=== PATIENT | female | born 1965 ===

== ENCOUNTER 2016-10-09 08:24 | Inpatient (IN) | payer MEDICAID, OTHER ==
[2016-10-09 08:27] VITALS: BMI 20.1
[2016-10-09 08:30] VITALS: O2SAT 100
[2016-10-09 10:03] LABS: EOS # 0.1 K/uL (0.0-0.7); EOS % 4.7 % (0.0-4.0); HEMATOCRIT 36.8 % (34.0-47.0); LYMPH # 1.2 K/uL (1.0-4.3); LYMPH % 39.2 % (20.0-40.0); MEAN CORPUSCULAR HEMOGLOBIN 28.7 pg (27.0-31.0); MEAN CORPUSCULAR HGB CONC 32.2 g/dL (33.0-37.0); MEAN PLATELET VOLUME 9.8 fL (7.2-11.7); MONO # 0.3 K/uL (0.0-0.8); MONO % 10.9 % (0.0-10.0); RED CELL DISTRIBUTION WIDTH 13.5 % (11.5-14.5); WHITE BLOOD COUNT 2.9 K/uL (4.8-10.8)
[2016-10-09 10:06] LABS: CHLORIDE 98 mmol/L (98-107)
[2016-10-09 10:07] LABS: POTASSIUM 3.8 mmol/L (3.6-5.2); SODIUM 144 mmol/L (132-148)
[2016-10-09 10:09] LABS: ALKALINE PHOSPHATASE 75 U/L (38-126); AST/SGOT 27 U/L (14-36); BILIRUBIN,TOTAL 0.3 mg/dL (0.2-1.3); BLOOD UREA NITROGEN 12 mg/dL (7-17); CARBON DIOXIDE 29 mmol/L (22-30); GFR AFRICAN-AMERICAN > 60; TOTAL PROTEIN 7.9 g/dL (6.3-8.3)
[2016-10-09 10:10] LABS: ALCOHOL SERUM < 10 mg/dl (0-10); ALT/SGPT 17 U/L (9-52); CALCIUM 8.9 mg/dl (8.6-10.4); GLUCOSE,RANDOM 104 mg/dL (65-105)
[2016-10-09 10:12] LABS: RBC URINE 1 /hpf (0-3); URINE BILIRUBIN NEGATIVE (NEGATIVE); URINE BLOOD NEGATIVE (NEGATIVE); URINE CALCIUM OXALATE CRYSTALS FEW /hpf (<OCC); URINE COLOR Yellow (YELLOW); URINE GLUCOSE (UA) NORMAL (Normal); URINE KETONE NEGATIVE (NEGATIVE); URINE LEUKOCYTE ESTERASE TRACE Leu/uL (Negative); URINE PROTEIN NEGATIVE (NEGATIVE); URINE UROBILINOGEN NORMAL mg/dL (0.2-1.0); WBC URINE 5 /hpf (0-5)
--- NOTE | 2016-10-09 10:54 | C.PDOC ---
History Of Present Illness 51 y/o female presents to the ED with complains of SI with a plan to overdose. Pt has history of psych admission, last was 1 year ago. Pt not currently on any medications. Pt denies homicidal ideation or any other complaints. Time Seen by Provider: 10/09/16 08:46 Chief Complaint (Nursing): Psychiatric Evaluation History Per: Patient History/Exam Limitations: no limitations Onset/Duration Of Symptoms: Days Current Symptoms Are (Timing): Still Present Suicide/Self Injury Attempted (Context): None Associated Symptoms: Suicidal Thoughts, Suicidal Plan Involuntary Hold By: None Recent travel outside of the [place]: No Past Medical History Reviewed: Historical Data, Nursing Documentation, Vital Signs Vital Signs: Last Vital Signs Temp 97.5 F L 10/09/16 08:28 Pulse 78 10/09/16 08:28 Resp 20 10/09/16 08:28 BP 129/77 10/09/16 08:28 Pulse Ox 100 10/09/16 10:54 - Medical History PMH: Anxiety, Depression, Hepatitis Family History: States: Unknown Family Hx - Social History Hx Alcohol Use: Yes Hx Substance Use: Yes (heroin (IV)) Review Of Systems Except As Marked, All Systems Reviewed And Found Negative. Psych: Positive for: Suicidal ideation Physical Exam - Physical Exam Appears: Non-toxic, No Acute Distress Skin: Warm, Dry, No Rash Head: Atraumatic, Normacephalic Neck: Normal ROM, Supple Chest: Symmetrical Cardiovascular: Rhythm Regular, No Murmur Respiratory: Normal Breath Sounds, No Rales, No Rhonchi, No Wheezing Gastrointestinal/Abdominal: Soft Extremity: Bilateral: Atraumatic Neurological/Psych: Oriented x3, Normal Speech ED Course And Treatment - Laboratory Results Result Diagrams: 10/09/16 09:53 10/09/16 09:53 O2 Sat by Pulse Oximetry: 100 (on room air) Pulse Ox Interpretation: Normal Progress Note: Plan: CRISIS evaluation. CRISIS given score of 14, placed on 1: 1 observation. Patient is medically cleared for psychiatric admission. She was accepted by . Disposition - Disposition Disposition: HOSPITALIZED Disposition Time: 11:23 Condition: STABLE - Clinical Impression Clinical Impression: Schizoaffective disorder, Suicidal ideations - PA / HUMAN RESOURCES TEMP / Resident Statement MD/DO has reviewed & agrees with the documentation as recorded. - Scribe Statement The provider has reviewed the documentation as recorded by the Scribe Neptali Abel All medical record entries made by the Jc were at my direction and personally dictated by me. I have reviewed the chart and agree that the record accurately reflects my personal performance of the history, physical exam, medical decision making, and the department course for this patient. I have also personally directed, reviewed, and agree with the discharge instructions and disposition. Decision To Admit - Pt Status Changed To: Hospital Disposition Of: Inpatient - Admit Certification Admit to Inpatient:: After my assessment, the patient will require hospitalization for at least two midnights. This is because of the severity of symptoms shown, intensity of services needed, and/or the medical risk in this patient being treated as an outpatient. - InPatient: Physician Admission Certification: I certify that this patient requires 2 or more midnights of care for the following reason:: will need more than 2 days of admission - . Bed Request Type: Psychiatry Patient Diagnosis: Schizoaffective disorder, Suicidal ideations
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
--- NOTE | 2016-10-10 10:30 | PCM.PYCHPN ---
Psychiatric Progress Note - Psychiatric Progress Note Patient seen today, length of contact: 17 min Patient Chief Complaint: suicidal ideation Problems Identified/Issues Discussed: Pt. remains disorganized and internally preoccupied. Pt. reports withdrawal symptoms, including headaches, cramps, joint pains and nausea. She is responding well to methadone tx. Pt. is taking medications and denies adverse effects. Pt. admits to still hearing voices, but does stipulate that they are improved. Pt. keeps to herself and doesnt engage in socializing. supportive therapy was given Medication Change: Yes (Methadone taper) Medical Record Reviewed: Yes Mental Status Examination - Cognitive Function Orientation: Person, Place, Situation, Time Attention: Poor Concentration: Poor Association: Loose Fund of Knowledge: Poor - Mood Mood: Depressed, Anxious - Affect Affect: Constricted, Depressed - Formal Thought Process Formal Thought Process: Hallucinations, Delusions, Paranoia, Loosening of associations, Flight of ideas, Thought Broadcasting - Suicidal Ideation Suicidal Ideation: No - Homicidal Ideation Homicidal Ideation: No Goal/Treatment Plan - Goal/Treatment Plan Need for Continued Stay: Discharge may exacerbated symptoms, Severe functional impairment Progress Toward Problem(s) and Goals/Treatment Plan: Schizoaffective Disorder depressed type CBT Psychoeducation Supportive therapy, group therapy, individual therapy Risperdal 1 mg by mouth twice a day Paxil 10 mg by mouth daily Neurontin 100 mg by mouth 3 times a day Trazodone 50 mg by mouth daily at bedtime Opioid abuse disorder severe CBT Psychoeducation Supportive therapy, individual therapy Use [place] for abstinence Opiate withdrawal CBT Psychoeducation Supportive therapy, individual therapy Methadone taper - Smoking Cessation Smoking Cessation Initiated: No
--- NOTE | 2016-10-11 15:58 | PCM.PYCHPN ---
Psychiatric Progress Note - Psychiatric Progress Note Patient seen today, length of contact: 16 min Patient Chief Complaint: i am feeling very depressed and anxious Problems Identified/Issues Discussed: Patient seen and evaluated, chart reviewed and discussed with the nurse. As per the staff, patient remained disorganized and internally preoccupied. Patient reports irritability, anxiety and agitation. She reports depressed mood but remained isolated and withdrawn. She still reports hearing voices. Patient still appears paranoid and delusional. She reports improvement in her withdrawal symptoms but still reports anxiety, headaches and back pains. Supportive therapy and psychoeducation were given. Medication Change: Yes (Methadone taper, increase Risperdal, increase Paxil) Medical Record Reviewed: Yes Mental Status Examination - Cognitive Function Orientation: Person, Place, Situation, Time Attention: Poor Concentration: Poor Association: Loose Fund of Knowledge: Poor - Mood Mood: Depressed, Anxious - Affect Affect: Constricted, Depressed - Formal Thought Process Formal Thought Process: Hallucinations, Delusions, Paranoia, Loosening of associations, Flight of ideas, Thought Broadcasting - Suicidal Ideation Suicidal Ideation: No - Homicidal Ideation Homicidal Ideation: No Goal/Treatment Plan - Goal/Treatment Plan Need for Continued Stay: Discharge may exacerbated symptoms, Severe functional impairment Progress Toward Problem(s) and Goals/Treatment Plan: Schizoaffective Disorder depressed type CBT Psychoeducation Supportive therapy, group therapy, individual therapy Risperdal 2 mg by mouth HS Paxil 20 mg by mouth daily Neurontin 100 mg by mouth 3 times a day Trazodone 50 mg by mouth daily at bedtime Opioid abuse disorder severe CBT Psychoeducation Supportive therapy, individual therapy Use [place] for abstinence Opiate withdrawal CBT Psychoeducation Supportive therapy, individual therapy Methadone taper - Smoking Cessation Smoking Cessation Initiated: No
--- NOTE | 2016-10-12 09:43 | PCM.PYCHPN ---
Psychiatric Progress Note - Psychiatric Progress Note Patient seen today, length of contact: 18 min Patient Chief Complaint: i am feeling very anxious Problems Identified/Issues Discussed: Patient seen and evaluated, chart reviewed and discussed with the nurse. today patient appeared more organized than before but remained internally preoccupied. She reports of racing of thoughts and flight of ideas. she also reports reports irritability, and agitation. however she reports improvement in her hallucinations and withdrawal symptoms. she is taking medication and denied side effects Supportive therapy and psychoeducation were given. Medication Change: Yes (Methadone taper, increase Risperdal, increase Paxil) Medical Record Reviewed: Yes Mental Status Examination - Cognitive Function Orientation: Person, Place, Situation, Time Attention: WNL Concentration: Poor Association: Loose Fund of Knowledge: Poor - Mood Mood: Depressed, Anxious - Affect Affect: Constricted, Depressed - Formal Thought Process Formal Thought Process: Hallucinations, Delusions, Paranoia, Loosening of associations, Flight of ideas, Thought Broadcasting - Suicidal Ideation Suicidal Ideation: No - Homicidal Ideation Homicidal Ideation: No Goal/Treatment Plan - Goal/Treatment Plan Need for Continued Stay: Discharge may exacerbated symptoms, Severe functional impairment Progress Toward Problem(s) and Goals/Treatment Plan: Schizoaffective Disorder depressed type CBT Psychoeducation Supportive therapy, group therapy, individual therapy Risperdal 3 mg by mouth HS Paxil 20 mg by mouth daily Neurontin 100 mg by mouth 3 times a day Trazodone 50 mg by mouth daily at bedtime Opioid abuse disorder severe CBT Psychoeducation Supportive therapy, individual therapy Use [place] for abstinence Opiate withdrawal CBT Psychoeducation Supportive therapy, individual therapy Methadone taper - Smoking Cessation Smoking Cessation Initiated: No
[2016-10-13] MEDS ORDERED: Divalproex 250 mg DR Tab PO SCH (10:00)
--- NOTE | 2016-10-13 11:31 | PCM.PYCHPN ---
Psychiatric Progress Note - Psychiatric Progress Note Patient seen today, length of contact: 16 min Patient Chief Complaint: i am still feeling anxious Problems Identified/Issues Discussed: Patient seen and evaluated, chart reviewed and discussed with the nurse. as per the staff patient has started coming out of her room and appears more organized and reports improvement in the voices. She still appears paranoid and delusional and reports irritability and agitation. she is taking medication and denies side effects. Supportive therapy and psychoeducation were given. Medication Change: Yes (start Depakote) Medical Record Reviewed: Yes Mental Status Examination - Cognitive Function Orientation: Person, Place, Situation, Time Attention: WNL Concentration: Poor Association: Loose Fund of Knowledge: Poor - Mood Mood: Depressed, Anxious - Affect Affect: Constricted, Depressed - Formal Thought Process Formal Thought Process: Paranoia, Loosening of associations, Flight of ideas - Suicidal Ideation Suicidal Ideation: No - Homicidal Ideation Homicidal Ideation: No Goal/Treatment Plan - Goal/Treatment Plan Need for Continued Stay: Discharge may exacerbated symptoms, Severe functional impairment Progress Toward Problem(s) and Goals/Treatment Plan: Schizoaffective Disorder depressed type CBT Psychoeducation Supportive therapy, group therapy, individual therapy Risperdal 3 mg by mouth HS Paxil 20 mg by mouth daily Neurontin 100 mg by mouth 3 times a day Trazodone 50 mg by mouth daily at bedtime Depakote 250 mg by mouth twice a day Opioid abuse disorder severe CBT Psychoeducation Supportive therapy, individual therapy Use [place] for abstinence Opiate withdrawal CBT Psychoeducation Supportive therapy, individual therapy Methadone taper - Smoking Cessation Smoking Cessation Initiated: No
[2016-10-13] MEDS: Divalproex 500 mg DR Tab PO SCH (18:13)
[2016-10-14] MEDS: Divalproex 500 mg DR Tab PO SCH ×2 (10:22→17:47)
--- NOTE | 2016-10-14 16:15 | PCM.PYCHPN ---
Psychiatric Progress Note - Psychiatric Progress Note Patient seen today, length of contact: 18 min Patient Chief Complaint: I'm feeling increase dizzy with Neurontin Problems Identified/Issues Discussed: Patient seen and evaluated, chart reviewed and discussed with the nurse. Pt reports sleepiness and dizziness from Neurontin. However she reports little bit improvement in her racing of thoughts and agitation. She also reports improvement in her paranoia and voices. As per staff more calm and cooperative and less agitated. She is taking medication and denies side effects. Medication Change: Yes (increase Depakote) Medical Record Reviewed: Yes Mental Status Examination - Cognitive Function Orientation: Person, Place, Situation, Time Attention: WNL Concentration: Poor Association: Loose Fund of Knowledge: Poor - Mood Mood: Depressed, Anxious - Affect Affect: Constricted, Depressed - Formal Thought Process Formal Thought Process: Delusions, Loosening of associations, Flight of ideas - Suicidal Ideation Suicidal Ideation: No - Homicidal Ideation Homicidal Ideation: No Goal/Treatment Plan - Goal/Treatment Plan Need for Continued Stay: Discharge may exacerbated symptoms, Severe functional impairment Progress Toward Problem(s) and Goals/Treatment Plan: Schizoaffective Disorder depressed type CBT Psychoeducation Supportive therapy, group therapy, individual therapy Risperdal 3 mg by mouth HS Paxil 20 mg by mouth daily Neurontin 100 mg by mouth 3 times a day Trazodone 50 mg by mouth daily at bedtime Depakote 250 mg by mouth daily Depakote 500 mg daily at bedtime Opioid abuse disorder severe CBT Psychoeducation Supportive therapy, individual therapy Use [place] for abstinence Opiate withdrawal CBT Psychoeducation Supportive therapy, individual therapy Methadone taper - Smoking Cessation Smoking Cessation Initiated: No
[2016-10-15] MEDS: Divalproex 500 mg DR Tab PO SCH ×2 (11:31→17:26)
--- NOTE | 2016-10-15 15:23 | PCM.PYCHPN ---
Psychiatric Progress Note - Psychiatric Progress Note Patient seen today, length of contact: 16 min Patient Chief Complaint: i am feeling better Problems Identified/Issues Discussed: Patient seen and evaluated, chart reviewed and discussed. She reports improvement in her racing of thoughts and anxiety and reports that Depakote is working well. Patient remained isolated and withdrawn. she reports improvement in her voices but appears a bit paranoid. She denies any withdrawal symptoms and she is more organized than before. she is taking medication and denied any side effects Supportive therapy and psychoeducation were given. Medication Change: Yes (increase Risperdal) Medical Record Reviewed: Yes Mental Status Examination - Cognitive Function Orientation: Person, Place, Situation, Time Attention: WNL Concentration: WNL Association: Loose Fund of Knowledge: WNL - Mood Mood: Depressed, Anxious - Affect Affect: Constricted, Depressed - Speech Speech: Soft - Formal Thought Process Formal Thought Process: Loosening of associations - Suicidal Ideation Suicidal Ideation: No - Homicidal Ideation Homicidal Ideation: No Goal/Treatment Plan - Goal/Treatment Plan Need for Continued Stay: Discharge may exacerbated symptoms, Severe functional impairment Progress Toward Problem(s) and Goals/Treatment Plan: Schizoaffective Disorder depressed type CBT Psychoeducation Supportive therapy, group therapy, individual therapy Risperdal 2 mg by mouth HS Cogentin 1 mg by mouth HS Paxil 10 mg by mouth daily Depakote 500 mg by mouth twice a day Trazodone 50 mg by mouth daily at bedtime Opioid abuse disorder severe CBT Psychoeducation Supportive therapy, individual therapy Use [place] for abstinence Opiate withdrawal CBT Psychoeducation Supportive therapy, individual therapy Methadone taper - Smoking Cessation Smoking Cessation Initiated: No
[2016-10-16] MEDS: Divalproex 500 mg DR Tab PO SCH ×2 (09:59→18:34)
[2016-10-16 10:19] VITALS: RESP 20
--- NOTE | 2016-10-16 15:13 | PCM.PYCHPN ---
Psychiatric Progress Note - Psychiatric Progress Note Patient seen today, length of contact: 17 min Patient Chief Complaint: i am feeling better Problems Identified/Issues Discussed: Patient seen and evaluated, chart reviewed and discussed. As per staff, she has started coming out of her room and has started attending groups and meetings. She reports improvement in her mood and anxiety. She reports improvement in her voices but appears somewhat paranoid. She denies any withdrawal symptoms and she is more organized than before. she is taking medication and denied any side effects Supportive therapy and psychoeducation were given. Medication Change: Yes (increase Risperdal) Medical Record Reviewed: Yes Mental Status Examination - Cognitive Function Orientation: Person, Place, Situation, Time Attention: WNL Concentration: WNL Association: Loose Fund of Knowledge: WNL - Mood Mood: Depressed, Anxious - Affect Affect: Constricted, Depressed - Speech Speech: Soft - Formal Thought Process Formal Thought Process: Loosening of associations - Suicidal Ideation Suicidal Ideation: No - Homicidal Ideation Homicidal Ideation: No Goal/Treatment Plan - Goal/Treatment Plan Need for Continued Stay: Discharge may exacerbated symptoms, Severe functional impairment Progress Toward Problem(s) and Goals/Treatment Plan: Schizoaffective Disorder depressed type CBT Psychoeducation Supportive therapy, group therapy, individual therapy Risperdal 3 mg by mouth HS Cogentin 1 mg by mouth HS Paxil 10 mg by mouth daily Depakote 500 mg by mouth twice a day Trazodone 50 mg by mouth daily at bedtime Opioid abuse disorder severe CBT Psychoeducation Supportive therapy, individual therapy Use [place] for abstinence Opiate withdrawal CBT Psychoeducation Supportive therapy, individual therapy Methadone taper - Smoking Cessation Smoking Cessation Initiated: No
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
[2016-10-17] MEDS: Divalproex 500 mg DR Tab PO SCH ×2 (10:44→18:22)
[2016-10-17] MEDS: Clindamycin 2% Vaginal Cream(40 gm) VAG SCH ×2 (11:45→21:41)
[2016-10-18 07:30] LABS: BASO % 0.3 % (0.0-2.0); EOS % 0.2 % (0.0-4.0); HEMATOCRIT 37.1 % (34.0-47.0); LYMPH # 1.9 K/uL (1.0-4.3); LYMPH % 28.5 % (20.0-40.0); MEAN CORPUSCULAR HEMOGLOBIN 29.3 pg (27.0-31.0); MEAN CORPUSCULAR HGB CONC 33.8 g/dL (33.0-37.0); MEAN PLATELET VOLUME 9.1 fL (7.2-11.7); MONO # 0.5 K/uL (0.0-0.8); MONO % 7.7 % (0.0-10.0); RED CELL DISTRIBUTION WIDTH 13.9 % (11.5-14.5)
[2016-10-18 07:31] LABS: CHLORIDE 102 mmol/L (98-107); SODIUM 141 mmol/L (132-148)
[2016-10-18 07:32] LABS: MEAN CELL VOLUME 87.3 fL (81.0-99.0); POTASSIUM 4.2 mmol/L (3.6-5.2); WHITE BLOOD COUNT 6.5 K/uL (4.8-10.8)
[2016-10-18 07:34] LABS: ALKALINE PHOSPHATASE 71 U/L (38-126); ALT/SGPT 14 U/L (9-52); AST/SGOT 19 U/L (14-36); BILIRUBIN,TOTAL 0.4 mg/dL (0.2-1.3); BLOOD UREA NITROGEN 14 mg/dL (7-17); CARBON DIOXIDE 25 mmol/L (22-30); GFR AFRICAN-AMERICAN > 60; GLUCOSE,RANDOM 98 mg/dL (65-105); TOTAL PROTEIN 7.9 g/dL (6.3-8.3)
[2016-10-18 07:35] LABS: CALCIUM 8.8 mg/dl (8.6-10.4)
--- NOTE | 2016-10-18 08:56 | PCM.PYCHPN ---
Psychiatric Progress Note - Psychiatric Progress Note Patient seen today, length of contact: 18 min Patient Chief Complaint: I'm feeling better Problems Identified/Issues Discussed: Patient seen and evaluated, chart reviewed and discussed with the nurse. Patient was scheduled to be discharged yesterday, however patient fell down and was kept in observation for one day. She denies any feelings of hopelessness or helplessness and denies any suicidal ideation or homicidal ideation. She is taking medication and denies side effects. Medication Change: No Medical Record Reviewed: Yes Mental Status Examination - Cognitive Function Orientation: Person, Place, Situation, Time Attention: WNL Concentration: WNL Association: WNL Fund of Knowledge: WNL - Mood Mood: Anxious - Affect Affect: Constricted - Speech Speech: Soft - Formal Thought Process Formal Thought Process: No Impairment - Suicidal Ideation Suicidal Ideation: No - Homicidal Ideation Homicidal Ideation: No Goal/Treatment Plan - Goal/Treatment Plan Need for Continued Stay: Discharge may exacerbated symptoms Progress Toward Problem(s) and Goals/Treatment Plan: Schizoaffective Disorder depressed type CBT Psychoeducation Supportive therapy, group therapy, individual therapy Risperdal 3 mg by mouth HS Paxil 20 mg by mouth daily Neurontin 100 mg by mouth 3 times a day Trazodone 50 mg by mouth daily at bedtime Depakote 250 mg by mouth daily Depakote 500 mg daily at bedtime Opioid abuse disorder severe CBT Psychoeducation Supportive therapy, individual therapy Use GA for abstinence Opiate withdrawal CBT Psychoeducation Supportive therapy, individual therapy Methadone taper - Smoking Cessation Smoking Cessation Initiated: No
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
[2016-10-18] MEDS: Divalproex 500 mg DR Tab PO SCH (10:58)
[2016-10-18 11:09] VITALS: BP 145/90; PULSE 72; TEMP 97.6
== END 2016-10-18 11:10 | disposition home or self-care (01) | DRG 430 ==
LOC: C.ER 08:24 → C.5E 11:13
PROVIDERS: ADMIT Psychiatry & Neurology Psychiatry; ATTEND Psychiatry & Neurology Psychiatry
DX: F25.1 Schizoaffective disorder, depressive type (principal); F11.23 Opioid dependence with withdrawal